=== PATIENT | male | born 1940 | race Caucasian/White ===

== ENCOUNTER 2021-11-17 00:27 | Inpatient (IN) | payer MEDICARE, OTHER ==
[~2021-11-17] VITALS: Ht 167.6 cm; Wt 63.1 kg
[2021-11-17] VITALS (39 sets, daily range): BP systolic 60–166; BP diastolic 37–96
[~2021-11-17 00:27] MED LIST: METF-414 PO; VALS40TA4 PO
[2021-11-17] MEDS ORDERED: ASPIRIN 81MG TABLET PO ONE (01:15)
[2021-11-17 01:27] LABS: CHLORIDE 104 mEq/L (98-107)
[2021-11-17 01:28] LABS: BASOPHILS % 0.2 % (0.0-2.0); EOSINOPHILS % 0.1 % (0.0-5.0); HEMATOCRIT. 26.8 % (42.0-52.0); HEMOGLOBIN. 8.6 g/dL (14.0-18.0); LYMPHOCYTES % 10.4 % (20.0-50.0); MEAN CORPUSCULAR HEMOGLOBIN 31.5 pg (28.0-32.0); MEAN CORPUSCULAR VOLUME 98.1 fL (80.0-94.0); MONOCYTES % 4.5 % (2.0-8.0); NEUTROPHILS % 84.8 % (40.0-76.0); PLATELET 210 x1000/uL (130-400); RED BLOOD CELL COUNT 2.73 mill/uL (4.7-6.1); RED CELL DISTRIBUTION WIDTH 14.8 % (11.6-14.6)
[2021-11-17 01:37] LABS: D-DIMER 1.71 mg/L FEU (<0.50); INR 1.1; PARTIAL THROMBOPLASTIN TIME 30.1 sec (23.4-31.0)
[2021-11-17] MEDS ORDERED: FUROSEMIDE 40MG/4ML VIAL IVP ONE (02:15)
[2021-11-17] MEDS ORDERED: HEPARIN 25,000 UNITS PREMIX 250 ML IV ONE (04:15)
[2021-11-17] MEDS ORDERED: HEPARIN 5000 UNITS/ML VIAL IV ONE (04:15)
[2021-11-17] MEDS ORDERED: HEPARIN BOLUS IV NR (05:10)
[2021-11-17] MEDS: HEPARIN 25,000 UNITS PREMIX 250 ML IV SCH ×2 (05:39→05:59)
[2021-11-17 08:13] LABS: HEPATITIS B SURFACE ANTIGEN NEGATIVE
[2021-11-17] MEDS ORDERED: SODIUM CHLORIDE 0.9% 10ML VIAL ONE (08:28)
[2021-11-17] MEDS ORDERED: ETOMIDATE 2MG/ML 10ML VIAL IV ONE (08:28)
[2021-11-17] MEDS ORDERED: HEPARIN 1000 UNITS/ML 10ML ONE (09:22)
[2021-11-17] MEDS ORDERED: LIDOCAINE HCL/PF 1% 10 MG/ML 5ML VIAL ONE (09:22)
[2021-11-17] MEDS ORDERED: HEPARIN BOLUS PRN aPTT <30 IV (11:00)
[2021-11-17] MEDS ORDERED: HEPARIN BOLUS PRN aPTT 30-44 IV (11:00)
[2021-11-17] MEDS ORDERED: DEXTROSE 50% WATER 50ML SYRINGE IV PRN (12:30)
[2021-11-17] MEDS ORDERED: ONDANSETRON HCL 4MG/2ML INJ IV PRN (12:30)
[2021-11-17 13:26] LABS: BG BASE EXCESS -7.3 mmol/L (-2.0-2.0); BG CARBOXYHEMOGLOBIN 0.1 % (0.5-1.5); BG DEOXYHEMOGLOBIN 5.5 % (0.0-5.0); BG FRACTION INSPIRED OXYGEN 100; BG HCO3 ACT 17.6 mmol/L (22.0-26.0); BG METHEMOGLOBIN 0.3 % (0.0-1.5); BG OXYGEN SATURATION 94.5 % (92.0-98.5); BG OXYHEMOGLOBIN 94.1 % (94.0-97.0); BG PCO2 32.8 mmHg (35.0-45.0); BG PH 7.347 (7.350-7.450); BG PO2 83.2 mmHg (75.0-100.0); BG TOTAL HEMOGLOBIN 8.2 g/dL (12.0-18.0); BG VENT MODE MASK - NRB
[2021-11-17] MEDS ORDERED: CALC667T6 MT (14:32)
[2021-11-17] MEDS ORDERED: ISOS60TA76 PO (14:32)
[2021-11-17] MEDS ORDERED: NEPVIT PO (14:57)
[2021-11-17] MEDS ORDERED: CIPR500S3 PO (14:57)
[2021-11-17] MEDS ORDERED: SODI650T MT (14:57)
[2021-11-17] MEDS ORDERED: NIFE-33 PO (14:57)
[2021-11-17] MEDS ORDERED: LATA2.5D14 RIGHTEYE (14:57)
[2021-11-17] MEDS ORDERED: HYDR-4134 PO (14:57)
[2021-11-17] MEDS ORDERED: CARV25TA47 MT (14:57)
[2021-11-17] MEDS ORDERED: GABA-532 PO (14:57)
[2021-11-17] MEDS ORDERED: PRED5DRO22 LEFTEYE (14:57)
[2021-11-17] MEDS ORDERED: CIPR5DRO LEFTEYE (14:57)
[2021-11-17] MEDS ORDERED: DOXY150T5 PO (14:57)
[2021-11-17] MEDS ORDERED: VANCO LEFTEYE (14:57)
[2021-11-17] MEDS ORDERED: DORZ10DR9 RIGHTEYE (14:57)
[2021-11-17] MEDS: IPRATROPIUM/ALBUTEROL 0.5-3(2.5)MG/3ML NEB HHN SCH ×2 (16:10→20:29)
[2021-11-17] MEDS ORDERED: SODIUM BICARBONATE 8.4% 1 MEQ/ML 50ML SYR IV NR (16:30)
[2021-11-17 17:18] LABS: MEAN CORPUSCULAR HEMOGLOBIN 31.8 pg (28.0-32.0); MEAN CORPUSCULAR VOLUME 95.5 fL (80.0-94.0); MEAN PLATELET VOLUME 8.6 fl (7.4-10.4); PLATELET 191 x1000/uL (130-400); RED BLOOD CELL COUNT 2.16 mill/uL (4.7-6.1); RED CELL DISTRIBUTION WIDTH 14.2 % (11.6-14.6)
[2021-11-17 17:22] LABS: HEMATOCRIT. 20.7 % (42.0-52.0); HEMOGLOBIN. 6.9 g/dL (14.0-18.0)
[2021-11-17] MEDS: INSULIN LISPRO 100 UNITS/ML SUBCUT SCH ×2 (17:43→22:11)
[2021-11-17] MEDS: BLOOD SUGAR DIAGNOSTIC STRIP TEST SCH ×2 (17:43→21:00)
[2021-11-17 17:48] LABS: PLATELET ESTIMATE NORMAL
[2021-11-17 18:22] LABS: CREATINE KINASE 1451 IU/L (39-308)
[2021-11-17] MEDS: PROPOFOL 10MG/ML 100ML 100 ML IV PRN (20:45)
[2021-11-17] MEDS: FUROSEMIDE 40MG/4ML VIAL IVP SCH (21:25)
[2021-11-17] MEDS: CARVEDILOL 6.25 MG TABLET PO SCH (21:26)
[2021-11-17 22:33] LABS: BG BASE EXCESS -3.6 mmol/L (-2.0-2.0); BG CARBOXYHEMOGLOBIN 0.3 % (0.5-1.5); BG DEOXYHEMOGLOBIN 8.6 % (0.0-5.0); BG FRACTION INSPIRED OXYGEN 100; BG HCO3 ACT 20.4 mmol/L (22.0-26.0); BG OXYGEN SATURATION 91.4 % (92.0-98.5); BG OXYHEMOGLOBIN 91.1 % (94.0-97.0); BG PCO2 33.4 mmHg (35.0-45.0); BG PH 7.404 (7.350-7.450); BG PO2 63.3 mmHg (75.0-100.0); BG SAMPLE SITE RIGHT BRACHIAL; BG TOTAL HEMOGLOBIN 10.8 g/dL (12.0-18.0); BG TOTAL RESPIRATORY RATE 32 b/min; BG VENT MODE VENT - AC
[2021-11-17 23:18] LABS: HEMATOCRIT. 31.2 % (42.0-52.0); HEMOGLOBIN. 10.1 g/dL (14.0-18.0); MEAN CORPUSCULAR VOLUME 95.5 fL (80.0-94.0); MEAN PLATELET VOLUME 8.4 fl (7.4-10.4); PLATELET 156 x1000/uL (130-400); RED BLOOD CELL COUNT 3.27 mill/uL (4.7-6.1); RED CELL DISTRIBUTION WIDTH 15.1 % (11.6-14.6)
[2021-11-17 23:27] LABS: CHLORIDE 111 mEq/L (98-107)
[2021-11-17] MEDS ORDERED: MIDAZOLAM 100MG/100ML PMX 100 ML IV PRN (23:30)
[2021-11-17] MEDS ORDERED: FENTANYL 2500MCG/250ML PMX 250 ML IV PRN (23:30)
[2021-11-17] MEDS: LINEZOLID 600 MG PREMIX 300 ML IV SCH (23:34)
[2021-11-17] MEDS: PIPERACILLIN/TAZOBACTAM 3.375 G in DEXTROSE 5% WATER 50 ML IV SCH (23:34)
[2021-11-18] VITALS (88 sets, daily range): BP systolic 72–145; BP diastolic 48–75
[2021-11-18] MEDS: PROPOFOL 10MG/ML 100ML 100 ML IV PRN (00:01)
[2021-11-18] MEDS: MIDAZOLAM HCL 100 MG in SODIUM CHLORIDE 0.9% 100 ML IV PRN (00:03)
[2021-11-18 00:28] LABS: PLATELET ESTIMATE NORMAL
[2021-11-18] MEDS: IPRATROPIUM/ALBUTEROL 0.5-3(2.5)MG/3ML NEB HHN SCH ×5 (00:43→20:14)
[2021-11-18] MEDS: BLOOD SUGAR DIAGNOSTIC STRIP TEST SCH ×4 (07:50→21:00)
[2021-11-18] MEDS: INSULIN LISPRO 100 UNITS/ML SUBCUT SCH ×4 (08:20→21:00)
[2021-11-18] MEDS: CARVEDILOL 6.25 MG TABLET PO SCH ×2 (09:00→20:48)
[2021-11-18] MEDS: ACETAMINOPHEN 325MG TABLET PO PRN (09:00)
[2021-11-18] MEDS: PIPERACILLIN/TAZOBACTAM 3.375 G in DEXTROSE 5% WATER 50 ML IV SCH ×2 (09:00→20:48)
[2021-11-18] MEDS: FUROSEMIDE 40MG/4ML VIAL IVP SCH ×2 (09:00→20:48)
[2021-11-18] MEDS: PANTOPRAZOLE SODIUM 40 MG/VIAL IV SCH (09:00)
[2021-11-18] MEDS: LINEZOLID 600 MG PREMIX 300 ML IV SCH ×2 (11:42→22:28)
[2021-11-18 11:51] LABS: HEMATOCRIT. 26.3 % (42.0-52.0); HEMOGLOBIN. 8.8 g/dL (14.0-18.0); MEAN CORPUSCULAR HEMOGLOBIN 31.4 pg (28.0-32.0); MEAN CORPUSCULAR VOLUME 94.2 fL (80.0-94.0); MEAN PLATELET VOLUME 9.2 fl (7.4-10.4); PLATELET 126 x1000/uL (130-400); RED BLOOD CELL COUNT 2.79 mill/uL (4.7-6.1); RED CELL DISTRIBUTION WIDTH 15.1 % (11.6-14.6)
[2021-11-18 11:59] LABS: BG BASE EXCESS -2.7 mmol/L (-2.0-2.0); BG CARBOXYHEMOGLOBIN 0.2 % (0.5-1.5); BG DEOXYHEMOGLOBIN 2.9 % (0.0-5.0); BG FRACTION INSPIRED OXYGEN 100; BG HCO3 ACT 20.9 mmol/L (22.0-26.0); BG METHEMOGLOBIN 0.2 % (0.0-1.5); BG OXYGEN SATURATION 97.1 % (92.0-98.5); BG OXYHEMOGLOBIN 96.7 % (94.0-97.0); BG PCO2 31.6 mmHg (35.0-45.0); BG PH 7.439 (7.350-7.450); BG PO2 113.5 mmHg (75.0-100.0); BG SAMPLE SITE RIGHT BRACHIAL; BG TOTAL HEMOGLOBIN 8.8 g/dL (12.0-18.0); BG VENT MODE VENT - AC
[2021-11-18 15:52] LABS: CREATINE KINASE 1249 IU/L (39-308)
[2021-11-18 15:58] LABS: BG DEOXYHEMOGLOBIN 9.9 % (0.0-5.0); BG HCO3 ACT 24.3 mmol/L (22.0-26.0); BG METHEMOGLOBIN 0.3 % (0.0-1.5); BG OXYGEN SATURATION 90.1 % (92.0-98.5); BG OXYHEMOGLOBIN 89.8 % (94.0-97.0); BG PCO2 34.5 mmHg (35.0-45.0); BG PH 7.466 (7.350-7.450); BG PO2 59.2 mmHg (75.0-100.0); BG SAMPLE SITE RIGHT BRACHIAL; BG TOTAL HEMOGLOBIN 12.2 g/dL (12.0-18.0); BG VENT MODE VENT - AC
[2021-11-18 16:12] LABS: CREATINE KINASE MB FRACTION 63.6 ng/mL (0.5-3.6)
[2021-11-18 17:10] LABS: PLATELET ESTIMATE DECREASED
[2021-11-18] MEDS: METHYLPREDNISOLONE SOD SUCC 40 MG/ML VIAL IV SCH (17:13)
[2021-11-19] VITALS (51 sets, daily range): BP systolic 95–168; BP diastolic 49–89
[2021-11-19] MEDS: IPRATROPIUM/ALBUTEROL 0.5-3(2.5)MG/3ML NEB HHN SCH ×6 (00:08→20:10)
[2021-11-19] MEDS: METHYLPREDNISOLONE SOD SUCC 40 MG/ML VIAL IV SCH ×3 (00:20→18:06)
[2021-11-19] MEDS: MIDAZOLAM HCL 100 MG in SODIUM CHLORIDE 0.9% 100 ML IV PRN (05:39)
[2021-11-19 05:47] LABS: HEMATOCRIT. 25.9 % (42.0-52.0); HEMOGLOBIN. 8.5 g/dL (14.0-18.0); MEAN CORPUSCULAR HEMOGLOBIN 31.5 pg (28.0-32.0); MEAN CORPUSCULAR VOLUME 95.7 fL (80.0-94.0); MEAN PLATELET VOLUME 8.5 fl (7.4-10.4); PLATELET 81 x1000/uL (130-400); RED BLOOD CELL COUNT 2.71 mill/uL (4.7-6.1); RED CELL DISTRIBUTION WIDTH 15.6 % (11.6-14.6)
[2021-11-19] MEDS: BLOOD SUGAR DIAGNOSTIC STRIP TEST SCH ×4 (06:43→21:59)
[2021-11-19] MEDS: INSULIN LISPRO 100 UNITS/ML SUBCUT SCH ×4 (06:49→22:01)
[2021-11-19] MEDS: FUROSEMIDE 40MG/4ML VIAL IVP SCH ×2 (08:29→21:48)
[2021-11-19] MEDS: CARVEDILOL 6.25 MG TABLET PO SCH ×2 (08:29→21:00)
[2021-11-19] MEDS: PANTOPRAZOLE SODIUM 40 MG/VIAL IV SCH (08:29)
[2021-11-19] MEDS: PIPERACILLIN/TAZOBACTAM 3.375 G in DEXTROSE 5% WATER 50 ML IV SCH ×2 (08:29→21:48)
[2021-11-19] MEDS: HYDRALAZINE HCL 25MG TABLET PO SCH ×3 (09:15→21:51)
[2021-11-19] MEDS: LINEZOLID 600 MG PREMIX 300 ML IV SCH (10:51)
[2021-11-19 12:51] LABS: BG BASE EXCESS -3.8 mmol/L (-2.0-2.0); BG CARBOXYHEMOGLOBIN 0.3 % (0.5-1.5); BG DEOXYHEMOGLOBIN 1.3 % (0.0-5.0); BG FRACTION INSPIRED OXYGEN 70; BG HCO3 ACT 20.8 mmol/L (22.0-26.0); BG METHEMOGLOBIN 0.3 % (0.0-1.5); BG OXYGEN SATURATION 98.7 % (92.0-98.5); BG OXYHEMOGLOBIN 98.1 % (94.0-97.0); BG PCO2 35.5 mmHg (35.0-45.0); BG PH 7.385 (7.350-7.450); BG SAMPLE SITE LEFT BRACHIAL; BG TOTAL HEMOGLOBIN 7.7 g/dL (12.0-18.0); BG VENT MODE VENT - AC
[2021-11-19] MEDS ORDERED: INSULIN GLARGINE 100 UNITS/ML SUBCUT NR (17:00)
[2021-11-20] VITALS (48 sets, daily range): BP systolic 110–175; BP diastolic 44–110
[2021-11-20] MEDS: METHYLPREDNISOLONE SOD SUCC 40 MG/ML VIAL IV SCH ×2 (00:03→08:56)
[2021-11-20] MEDS: IPRATROPIUM/ALBUTEROL 0.5-3(2.5)MG/3ML NEB HHN SCH ×5 (00:32→19:58)
[2021-11-20] MEDS: HYDRALAZINE HCL 25MG TABLET PO SCH ×3 (05:51→22:44)
[2021-11-20] MEDS ORDERED: INSULIN REGULAR (HUMULIN R) 300UNITS/3ML VIAL SUBCUT NR (06:15)
[2021-11-20 06:21] LABS: HEMATOCRIT. 22.4 % (42.0-52.0); HEMOGLOBIN. 7.6 g/dL (14.0-18.0); MEAN CORPUSCULAR HEMOGLOBIN 31.7 pg (28.0-32.0); MEAN CORPUSCULAR VOLUME 93.3 fL (80.0-94.0); MEAN PLATELET VOLUME 10.1 fl (7.4-10.4); PLATELET 93 x1000/uL (130-400); RED CELL DISTRIBUTION WIDTH 14.9 % (11.6-14.6)
[2021-11-20] MEDS: INSULIN LISPRO 100 UNITS/ML SUBCUT SCH ×6 (06:32→21:10)
[2021-11-20 06:38] LABS: PLATELET ESTIMATE DECREASED
[2021-11-20 06:58] LABS: PHOSPHORUS 8.1 mg/dL (2.5-4.9)
[2021-11-20] MEDS ORDERED: INSULIN LISPRO 100 UNITS/ML SUBCUT SCH (07:30)
[2021-11-20] MEDS ORDERED: BLOOD SUGAR DIAGNOSTIC STRIP TEST SCH (07:50)
[2021-11-20] MEDS: BLOOD SUGAR DIAGNOSTIC STRIP TEST SCH ×4 (08:45→20:48)
[2021-11-20] MEDS: FUROSEMIDE 40MG/4ML VIAL IVP SCH (08:56)
[2021-11-20] MEDS: PANTOPRAZOLE SODIUM 40 MG/VIAL IV SCH (08:56)
[2021-11-20] MEDS: PIPERACILLIN/TAZOBACTAM 3.375 G in DEXTROSE 5% WATER 50 ML IV SCH ×2 (08:57→20:47)
[2021-11-20] MEDS: CARVEDILOL 6.25 MG TABLET PO SCH ×2 (08:57→20:48)
[2021-11-20 10:19] LABS: PLATELET ESTIMATE DECREASED
[2021-11-20] MEDS: INSULIN GLARGINE 100 UNITS/ML SUBCUT SCH ×2 (10:48→21:11)
[2021-11-20 11:00] LABS: BG BASE EXCESS -1.1 mmol/L (-2.0-2.0); BG CARBOXYHEMOGLOBIN 0.3 % (0.5-1.5); BG HCO3 ACT 23.2 mmol/L (22.0-26.0); BG METHEMOGLOBIN 0.3 % (0.0-1.5); BG OXYHEMOGLOBIN 96.4 % (94.0-97.0); BG PCO2 37.1 mmHg (35.0-45.0); BG PH 7.414 (7.350-7.450); BG PO2 102.9 mmHg (75.0-100.0); BG SAMPLE SITE RIGHT BRACHIAL; BG TOTAL HEMOGLOBIN 10.7 g/dL (12.0-18.0); BG VENT MODE VENT - AC
[2021-11-20 13:06] LABS: HEMATOCRIT 29.2 % (42.0-52.0); HEMOGLOBIN 9.7 g/dL (14.0-18.0)
[2021-11-20] MEDS: CALCIUM ACETATE 667MG CAPSULE PO SCH ×2 (13:22→17:35)
[2021-11-20] MEDS ORDERED: NON FORMULARY PATIENT HOME MED XX SCH ×2 (14:00)
[2021-11-20] MEDS: PREDNISOLONE ACETATE 1% OPHTH DROPS 5ML RIGHTEYE SCH ×3 (15:29→20:50)
[2021-11-20 15:53] LABS: BG BASE EXCESS -1.6 mmol/L (-2.0-2.0); BG CARBOXYHEMOGLOBIN 0.3 % (0.5-1.5); BG DEOXYHEMOGLOBIN 2.9 % (0.0-5.0); BG HCO3 ACT 23.2 mmol/L (22.0-26.0); BG METHEMOGLOBIN 0.4 % (0.0-1.5); BG OXYGEN SATURATION 97.1 % (92.0-98.5); BG OXYHEMOGLOBIN 96.4 % (94.0-97.0); BG PCO2 39.2 mmHg (35.0-45.0); BG PO2 109.8 mmHg (75.0-100.0); BG SAMPLE SITE RIGHT BRACHIAL; BG TOTAL HEMOGLOBIN 9.3 g/dL (12.0-18.0); BG VENT MODE VENT - CPAP
[2021-11-20] MEDS ORDERED: NON FORMULARY PATIENT HOME MED OP SCH ×2 (16:00→17:00)
[2021-11-20] MEDS: EPOETIN ALFA-EPBX 4,000 UNIT/ML VIAL SUBCUT SCH (20:48)
[2021-11-21] VITALS (40 sets, daily range): BP systolic 124–180; BP diastolic 61–109
[2021-11-21] MEDS ORDERED: FENTANYL CITRATE/PF 2,500 MCG in SODIUM CHLORIDE 0.9% 200 ML IV PRN (00:01)
[2021-11-21] MEDS: IPRATROPIUM/ALBUTEROL 0.5-3(2.5)MG/3ML NEB HHN SCH ×6 (00:33→19:39)
[2021-11-21 05:33] LABS: HEMATOCRIT. 28.9 % (42.0-52.0); HEMOGLOBIN. 9.4 g/dL (14.0-18.0); MEAN CORPUSCULAR HEMOGLOBIN 30.5 pg (28.0-32.0); MEAN CORPUSCULAR VOLUME 93.2 fL (80.0-94.0); MEAN PLATELET VOLUME 10.1 fl (7.4-10.4); PLATELET 84 x1000/uL (130-400)
[2021-11-21] MEDS: HYDRALAZINE HCL 25MG TABLET PO SCH ×3 (05:48→21:53)
[2021-11-21] MEDS: HYDRALAZINE 20MG/ML VIAL IV PRN ×3 (06:41→21:53)
[2021-11-21] MEDS: BLOOD SUGAR DIAGNOSTIC STRIP TEST SCH ×4 (07:35→21:53)
[2021-11-21] MEDS: PANTOPRAZOLE SODIUM 40 MG/VIAL IV SCH (08:50)
[2021-11-21] MEDS: CALCIUM ACETATE 667MG CAPSULE PO SCH ×3 (08:50→17:29)
[2021-11-21] MEDS: CARVEDILOL 6.25 MG TABLET PO SCH ×2 (08:51→21:00)
[2021-11-21] MEDS: PIPERACILLIN/TAZOBACTAM 3.375 G in DEXTROSE 5% WATER 50 ML IV SCH ×2 (08:52→21:52)
[2021-11-21] MEDS: METHYLPREDNISOLONE SOD SUCC 40 MG/ML VIAL IV SCH (08:52)
[2021-11-21] MEDS: INSULIN LISPRO 100 UNITS/ML SUBCUT SCH ×4 (08:53→21:00)
[2021-11-21] MEDS: INSULIN GLARGINE 100 UNITS/ML SUBCUT SCH ×2 (08:53→22:00)
[2021-11-21] MEDS: PREDNISOLONE ACETATE 1% OPHTH DROPS 5ML RIGHTEYE SCH ×4 (08:59→21:54)
[2021-11-21 13:19] LABS: NUCLEATED RED BLOOD CELLS 1 /100 WBC
[2021-11-21 13:20] LABS: PLATELET ESTIMATE DECREASED
[2021-11-21 16:05] LABS: BG BASE EXCESS -2.4 mmol/L (-2.0-2.0); BG CARBOXYHEMOGLOBIN 0.3 % (0.5-1.5); BG DEOXYHEMOGLOBIN 2.5 % (0.0-5.0); BG FRACTION INSPIRED OXYGEN 40; BG HCO3 ACT 22.4 mmol/L (22.0-26.0); BG METHEMOGLOBIN 0.7 % (0.0-1.5); BG OXYGEN SATURATION 97.5 % (92.0-98.5); BG OXYHEMOGLOBIN 96.5 % (94.0-97.0); BG PCO2 38.6 mmHg (35.0-45.0); BG PH 7.382 (7.350-7.450); BG PO2 124.8 mmHg (75.0-100.0); BG SAMPLE SITE RIGHT RADIAL; BG TOTAL HEMOGLOBIN 9.3 g/dL (12.0-18.0); BG TOTAL RESPIRATORY RATE 11 b/min; BG VENT MODE VENT - CPAP
[2021-11-21 22:34] LABS: BG BASE EXCESS -1.4 mmol/L (-2.0-2.0); BG CARBOXYHEMOGLOBIN 0.1 % (0.5-1.5); BG DEOXYHEMOGLOBIN 9.1 % (0.0-5.0); BG FRACTION INSPIRED OXYGEN 35; BG HCO3 ACT 22.6 mmol/L (22.0-26.0); BG METHEMOGLOBIN 0.3 % (0.0-1.5); BG OXYGEN SATURATION 90.9 % (92.0-98.5); BG OXYHEMOGLOBIN 90.5 % (94.0-97.0); BG PCO2 35.2 mmHg (35.0-45.0); BG PH 7.425 (7.350-7.450); BG SAMPLE SITE RIGHT BRACHIAL; BG TOTAL HEMOGLOBIN 9.8 g/dL (12.0-18.0); BG VENT MODE COOL AEROSOL
[2021-11-22] VITALS (46 sets, daily range): BP systolic 103–157; BP diastolic 60–82
[2021-11-22] MEDS: IPRATROPIUM/ALBUTEROL 0.5-3(2.5)MG/3ML NEB HHN SCH ×5 (00:11→20:07)
[2021-11-22 05:32] LABS: HEMATOCRIT. 30.8 % (42.0-52.0); HEMOGLOBIN. 10.1 g/dL (14.0-18.0); MEAN CORPUSCULAR HEMOGLOBIN 30.7 pg (28.0-32.0); MEAN CORPUSCULAR VOLUME 93.5 fL (80.0-94.0); MEAN PLATELET VOLUME 10.1 fl (7.4-10.4); PLATELET 95 x1000/uL (130-400); RED CELL DISTRIBUTION WIDTH 15.9 % (11.6-14.6)
[2021-11-22] MEDS: HYDRALAZINE HCL 25MG TABLET PO SCH ×3 (06:00→22:00)
[2021-11-22] MEDS: BLOOD SUGAR DIAGNOSTIC STRIP TEST SCH ×4 (08:01→20:43)
[2021-11-22] MEDS: INSULIN LISPRO 100 UNITS/ML SUBCUT SCH ×4 (08:01→20:51)
[2021-11-22] MEDS: CARVEDILOL 6.25 MG TABLET PO SCH ×2 (08:04→20:50)
[2021-11-22] MEDS: PANTOPRAZOLE SODIUM 40 MG/VIAL IV SCH (08:04)
[2021-11-22] MEDS: PIPERACILLIN/TAZOBACTAM 3.375 G in DEXTROSE 5% WATER 50 ML IV SCH ×2 (08:04→23:55)
[2021-11-22] MEDS: METHYLPREDNISOLONE SOD SUCC 40 MG/ML VIAL IV SCH (08:04)
[2021-11-22] MEDS: CALCIUM ACETATE 667MG CAPSULE PO SCH ×3 (08:04→17:09)
[2021-11-22] MEDS: DEXTROSE 50% WATER 50ML SYRINGE IV PRN (08:05)
[2021-11-22] MEDS: PREDNISOLONE ACETATE 1% OPHTH DROPS 5ML RIGHTEYE SCH ×4 (08:19→20:50)
[2021-11-22] MEDS: INSULIN GLARGINE 100 UNITS/ML SUBCUT SCH ×2 (10:00→22:00)
[2021-11-22 14:16] LABS: PLATELET ESTIMATE DECREASED
[2021-11-22] MEDS: TOBRAMYCIN LEFTEYE SCH ×3 (15:47→20:27)
[2021-11-22] MEDS: VANCOMYCIN 25 MG/ML LEFTEYE SCH ×2 (17:10→20:27)
[2021-11-22 17:35] LABS: BG CARBOXYHEMOGLOBIN 0.3 % (0.5-1.5); BG DEOXYHEMOGLOBIN 11.4 % (0.0-5.0); BG FRACTION INSPIRED OXYGEN 40; BG HCO3 ACT 26.2 mmol/L (22.0-26.0); BG METHEMOGLOBIN 0.3 % (0.0-1.5); BG OXYGEN SATURATION 88.5 % (92.0-98.5); BG PCO2 34.8 mmHg (35.0-45.0); BG PH 7.495 (7.350-7.450); BG PO2 53.3 mmHg (75.0-100.0); BG SAMPLE SITE RIGHT BRACHIAL; BG VENT MODE COOL AEROSOL
[2021-11-23] VITALS (51 sets, daily range): BP systolic 114–159; BP diastolic 54–95
[2021-11-23] MEDS: IPRATROPIUM/ALBUTEROL 0.5-3(2.5)MG/3ML NEB HHN SCH ×6 (00:14→19:50)
[2021-11-23] MEDS: HYDRALAZINE HCL 25MG TABLET PO SCH ×3 (05:17→21:57)
[2021-11-23] MEDS: DEXTROSE 50% WATER 50ML SYRINGE IV PRN (07:37)
[2021-11-23] MEDS: BLOOD SUGAR DIAGNOSTIC STRIP TEST SCH ×4 (07:49→20:36)
[2021-11-23] MEDS: INSULIN LISPRO 100 UNITS/ML SUBCUT SCH ×4 (07:49→20:45)
[2021-11-23] MEDS ORDERED: POTASSIUM CHLORIDE 20MEQ TABLET SR PO NR (08:15)
[2021-11-23] MEDS: TOBRAMYCIN LEFTEYE SCH ×7 (08:46→20:27)
[2021-11-23] MEDS: PIPERACILLIN/TAZOBACTAM 3.375 G in DEXTROSE 5% WATER 50 ML IV SCH ×2 (08:46→20:27)
[2021-11-23] MEDS: VANCOMYCIN 25 MG/ML LEFTEYE SCH ×4 (08:46→20:30)
[2021-11-23] MEDS: PREDNISOLONE ACETATE 1% OPHTH DROPS 5ML RIGHTEYE SCH ×4 (08:46→20:36)
[2021-11-23] MEDS: PANTOPRAZOLE SODIUM 40 MG/VIAL IV SCH (08:47)
[2021-11-23] MEDS: METHYLPREDNISOLONE SOD SUCC 40 MG/ML VIAL IV SCH (08:47)
[2021-11-23] MEDS: CALCIUM ACETATE 667MG CAPSULE PO SCH ×3 (08:47→17:30)
[2021-11-23] MEDS: CARVEDILOL 6.25 MG TABLET PO SCH ×2 (08:47→20:28)
[2021-11-23] MEDS: INSULIN GLARGINE 100 UNITS/ML SUBCUT SCH ×2 (10:00→21:52)
[2021-11-23 16:57] LABS: BG BASE EXCESS 1.4 mmol/L (-2.0-2.0); BG CARBOXYHEMOGLOBIN 0.3 % (0.5-1.5); BG DEOXYHEMOGLOBIN 8.1 % (0.0-5.0); BG HCO3 ACT 24.8 mmol/L (22.0-26.0); BG METHEMOGLOBIN 0.1 % (0.0-1.5); BG OXYGEN SATURATION 91.9 % (92.0-98.5); BG OXYHEMOGLOBIN 91.5 % (94.0-97.0); BG PCO2 34.6 mmHg (35.0-45.0); BG PH 7.473 (7.350-7.450); BG PO2 64.5 mmHg (75.0-100.0); BG SAMPLE SITE RIGHT RADIAL; BG VENT MODE COOL AEROSOL
[2021-11-23] MEDS: EPOETIN ALFA-EPBX 4,000 UNIT/ML VIAL SUBCUT SCH (20:32)
[2021-11-23] MEDS: HYDRALAZINE 20MG/ML VIAL IV PRN (21:47)
[2021-11-24] VITALS (32 sets, daily range): BP systolic 87–156; BP diastolic 56–90
[2021-11-24] MEDS: IPRATROPIUM/ALBUTEROL 0.5-3(2.5)MG/3ML NEB HHN SCH ×6 (00:07→20:16)
[2021-11-24] MEDS: HYDRALAZINE HCL 25MG TABLET PO SCH ×3 (05:04→21:02)
[2021-11-24 05:33] LABS: HEMATOCRIT. 27.1 % (42.0-52.0); HEMOGLOBIN. 9.1 g/dL (14.0-18.0); MEAN CORPUSCULAR HEMOGLOBIN 31.2 pg (28.0-32.0); MEAN CORPUSCULAR VOLUME 92.4 fL (80.0-94.0); MEAN PLATELET VOLUME 10.5 fl (7.4-10.4); PLATELET 68 x1000/uL (130-400); RED BLOOD CELL COUNT 2.93 mill/uL (4.7-6.1); RED CELL DISTRIBUTION WIDTH 15.3 % (11.6-14.6)
[2021-11-24 05:50] LABS: PHOSPHORUS 5.4 mg/dL (2.5-4.9)
[2021-11-24 06:26] LABS: PLATELET ESTIMATE DECREASED
[2021-11-24] MEDS: INSULIN LISPRO 100 UNITS/ML SUBCUT SCH ×4 (08:20→20:38)
[2021-11-24] MEDS: BLOOD SUGAR DIAGNOSTIC STRIP TEST SCH ×4 (08:22→20:25)
[2021-11-24] MEDS: PANTOPRAZOLE SODIUM 40 MG/VIAL IV SCH (08:36)
[2021-11-24] MEDS: METHYLPREDNISOLONE SOD SUCC 40 MG/ML VIAL IV SCH (08:36)
[2021-11-24] MEDS: CALCIUM ACETATE 667MG CAPSULE PO SCH ×3 (08:36→17:49)
[2021-11-24] MEDS: PREDNISOLONE ACETATE 1% OPHTH DROPS 5ML RIGHTEYE SCH ×4 (08:37→20:23)
[2021-11-24] MEDS: TOBRAMYCIN LEFTEYE SCH ×7 (08:37→19:33)
[2021-11-24] MEDS: VANCOMYCIN 25 MG/ML LEFTEYE SCH ×4 (08:37→20:14)
[2021-11-24] MEDS: CARVEDILOL 6.25 MG TABLET PO SCH ×2 (08:38→20:15)
[2021-11-24] MEDS: PIPERACILLIN/TAZOBACTAM 3.375 G in DEXTROSE 5% WATER 50 ML IV SCH ×2 (08:38→20:14)
[2021-11-24] MEDS: INSULIN GLARGINE 100 UNITS/ML SUBCUT SCH ×2 (10:00→21:04)
[2021-11-25] VITALS (18 sets, daily range): BP systolic 124–162; BP diastolic 64–85
[2021-11-25] MEDS: IPRATROPIUM/ALBUTEROL 0.5-3(2.5)MG/3ML NEB HHN SCH ×6 (01:06→20:46)
[2021-11-25] MEDS: HYDRALAZINE HCL 25MG TABLET PO SCH ×3 (05:03→22:29)
[2021-11-25 05:54] LABS: HEMATOCRIT. 28.7 % (42.0-52.0); HEMOGLOBIN. 9.5 g/dL (14.0-18.0); MEAN CORPUSCULAR HEMOGLOBIN 30.7 pg (28.0-32.0); MEAN PLATELET VOLUME 10.9 fl (7.4-10.4); PLATELET 80 x1000/uL (130-400); RED BLOOD CELL COUNT 3.08 mill/uL (4.7-6.1); RED CELL DISTRIBUTION WIDTH 15.3 % (11.6-14.6)
[2021-11-25 07:42] LABS: PLATELET ESTIMATE DECREASED
[2021-11-25] MEDS: INSULIN LISPRO 100 UNITS/ML SUBCUT SCH ×4 (08:20→21:00)
[2021-11-25] MEDS: BLOOD SUGAR DIAGNOSTIC STRIP TEST SCH ×4 (08:41→21:00)
[2021-11-25] MEDS: TOBRAMYCIN LEFTEYE SCH ×7 (08:42→20:42)
[2021-11-25] MEDS: VANCOMYCIN 25 MG/ML LEFTEYE SCH ×4 (08:42→20:42)
[2021-11-25] MEDS: CALCIUM ACETATE 667MG CAPSULE PO SCH ×3 (08:44→17:15)
[2021-11-25] MEDS: PIPERACILLIN/TAZOBACTAM 3.375 G in DEXTROSE 5% WATER 50 ML IV SCH ×2 (08:44→22:39)
[2021-11-25] MEDS: PANTOPRAZOLE SODIUM 40 MG/VIAL IV SCH (08:45)
[2021-11-25] MEDS: METHYLPREDNISOLONE SOD SUCC 40 MG/ML VIAL IV SCH (08:45)
[2021-11-25] MEDS: CARVEDILOL 6.25 MG TABLET PO SCH (08:45)
[2021-11-25] MEDS: PREDNISOLONE ACETATE 1% OPHTH DROPS 5ML RIGHTEYE SCH ×4 (08:46→20:38)
[2021-11-25] MEDS: INSULIN GLARGINE 100 UNITS/ML SUBCUT SCH ×2 (10:35→22:00)
[2021-11-25] MEDS ORDERED: *PATIENT'S OWN MEDICATION STORAGE XX SCH (12:45)
[2021-11-25] MEDS: CARVEDILOL 12.5MG TABLET PO SCH (20:37)
[2021-11-25] MEDS: EPOETIN ALFA-EPBX 4,000 UNIT/ML VIAL SUBCUT SCH (20:43)
[2021-11-26] VITALS (13 sets, daily range): BP systolic 101–162; BP diastolic 48–86
[2021-11-26] MEDS: IPRATROPIUM/ALBUTEROL 0.5-3(2.5)MG/3ML NEB HHN SCH ×6 (00:11→20:00)
[2021-11-26] MEDS: ACETAMINOPHEN 325MG TABLET PO PRN ×2 (04:41→14:13)
[2021-11-26] MEDS: HYDRALAZINE HCL 25MG TABLET PO SCH ×3 (07:21→22:00)
[2021-11-26 07:42] LABS: HEMATOCRIT. 28.6 % (42.0-52.0); HEMOGLOBIN. 9.5 g/dL (14.0-18.0); MEAN CORPUSCULAR HEMOGLOBIN 31.5 pg (28.0-32.0); MEAN CORPUSCULAR VOLUME 94.4 fL (80.0-94.0); MEAN PLATELET VOLUME 10.8 fl (7.4-10.4); PLATELET 104 x1000/uL (130-400); RED BLOOD CELL COUNT 3.03 mill/uL (4.7-6.1); RED CELL DISTRIBUTION WIDTH 15.2 % (11.6-14.6)
[2021-11-26] MEDS: TOBRAMYCIN LEFTEYE SCH ×7 (07:54→20:25)
[2021-11-26] MEDS: BLOOD SUGAR DIAGNOSTIC STRIP TEST SCH ×4 (07:57→21:00)
[2021-11-26] MEDS: INSULIN LISPRO 100 UNITS/ML SUBCUT SCH ×4 (07:58→21:00)
[2021-11-26] MEDS: METHYLPREDNISOLONE SOD SUCC 40 MG/ML VIAL IV SCH (08:49)
[2021-11-26] MEDS: PANTOPRAZOLE SODIUM 40 MG/VIAL IV SCH (08:49)
[2021-11-26] MEDS: PIPERACILLIN/TAZOBACTAM 3.375 G in DEXTROSE 5% WATER 50 ML IV SCH ×2 (08:49→22:33)
[2021-11-26] MEDS: CARVEDILOL 12.5MG TABLET PO SCH ×2 (08:49→21:00)
[2021-11-26] MEDS: CALCIUM ACETATE 667MG CAPSULE PO SCH ×3 (08:49→16:30)
[2021-11-26] MEDS: PREDNISOLONE ACETATE 1% OPHTH DROPS 5ML RIGHTEYE SCH ×4 (08:50→22:26)
[2021-11-26] MEDS: VANCOMYCIN 25 MG/ML LEFTEYE SCH ×4 (08:50→20:26)
[2021-11-26] MEDS: INSULIN GLARGINE 100 UNITS/ML SUBCUT SCH ×2 (09:02→22:33)
[2021-11-26 09:04] LABS: PLATELET ESTIMATE SLIGHTLY DECREASED
[2021-11-26] MEDS ORDERED: ALTEPLASE 2MG/VIAL ITC NR (10:00)
[2021-11-27] VITALS (12 sets, daily range): BP systolic 104–140; BP diastolic 53–81
[2021-11-27] MEDS: IPRATROPIUM/ALBUTEROL 0.5-3(2.5)MG/3ML NEB HHN SCH ×6 (00:22→20:52)
[2021-11-27] MEDS: HYDRALAZINE HCL 25MG TABLET PO SCH ×3 (06:49→21:23)
[2021-11-27] MEDS: TOBRAMYCIN LEFTEYE SCH ×7 (07:41→21:22)
[2021-11-27] MEDS: BLOOD SUGAR DIAGNOSTIC STRIP TEST SCH ×4 (07:49→21:24)
[2021-11-27] MEDS: INSULIN LISPRO 100 UNITS/ML SUBCUT SCH ×4 (07:49→21:00)
[2021-11-27] MEDS: VANCOMYCIN 25 MG/ML LEFTEYE SCH ×4 (08:00→21:22)
[2021-11-27] MEDS: PREDNISOLONE ACETATE 1% OPHTH DROPS 5ML RIGHTEYE SCH ×4 (08:00→21:23)
[2021-11-27] MEDS: CARVEDILOL 12.5MG TABLET PO SCH ×2 (08:01→21:23)
[2021-11-27] MEDS: CALCIUM ACETATE 667MG CAPSULE PO SCH ×3 (08:01→16:26)
[2021-11-27] MEDS: PIPERACILLIN/TAZOBACTAM 3.375 G in DEXTROSE 5% WATER 50 ML IV SCH (08:01)
[2021-11-27] MEDS: PANTOPRAZOLE SODIUM 40 MG/VIAL IV SCH (08:01)
[2021-11-27] MEDS: METHYLPREDNISOLONE SOD SUCC 40 MG/ML VIAL IV SCH (08:01)
[2021-11-27] MEDS: INSULIN GLARGINE 100 UNITS/ML SUBCUT SCH ×2 (09:10→21:38)
[2021-11-27] MEDS: ACETAMINOPHEN 325MG TABLET PO PRN (21:34)
[2021-11-28] VITALS (15 sets, daily range): BP systolic 114–149; BP diastolic 37–80
[2021-11-28] MEDS: IPRATROPIUM/ALBUTEROL 0.5-3(2.5)MG/3ML NEB HHN SCH ×7 (00:23→23:46)
[2021-11-28] MEDS: HYDRALAZINE HCL 25MG TABLET PO SCH ×3 (05:35→21:34)
[2021-11-28 05:58] LABS: MEAN CORPUSCULAR HEMOGLOBIN 31.3 pg (28.0-32.0); MEAN CORPUSCULAR VOLUME 95.6 fL (80.0-94.0); MEAN PLATELET VOLUME 10.3 fl (7.4-10.4); PLATELET 125 x1000/uL (130-400); RED BLOOD CELL COUNT 2.51 mill/uL (4.7-6.1); RED CELL DISTRIBUTION WIDTH 15.6 % (11.6-14.6)
[2021-11-28 06:19] LABS: PHOSPHORUS 4.9 mg/dL (2.5-4.9)
[2021-11-28 07:05] LABS: HEMOGLOBIN. 7.8 g/dL (14.0-18.0)
[2021-11-28] MEDS: BLOOD SUGAR DIAGNOSTIC STRIP TEST SCH ×4 (07:52→20:16)
[2021-11-28] MEDS: INSULIN LISPRO 100 UNITS/ML SUBCUT SCH ×4 (07:52→21:34)
[2021-11-28] MEDS: PANTOPRAZOLE SODIUM 40 MG/VIAL IV SCH (08:35)
[2021-11-28] MEDS: METHYLPREDNISOLONE SOD SUCC 40 MG/ML VIAL IV SCH (08:35)
[2021-11-28] MEDS: CALCIUM ACETATE 667MG CAPSULE PO SCH ×3 (08:35→16:33)
[2021-11-28] MEDS: CARVEDILOL 12.5MG TABLET PO SCH ×2 (08:36→21:33)
[2021-11-28] MEDS: VANCOMYCIN 25 MG/ML LEFTEYE SCH ×4 (08:36→21:33)
[2021-11-28] MEDS: PREDNISOLONE ACETATE 1% OPHTH DROPS 5ML RIGHTEYE SCH ×4 (08:37→21:32)
[2021-11-28] MEDS: TOBRAMYCIN LEFTEYE SCH ×7 (08:37→21:32)
[2021-11-28] MEDS: INSULIN GLARGINE 100 UNITS/ML SUBCUT SCH ×2 (10:12→21:35)
[2021-11-28 12:49] LABS: PARTIAL THROMBOPLASTIN TIME 23.6 sec (23.4-31.0)
[2021-11-28 17:15] LABS: PLATELET ESTIMATE SLIGHTLY DECREASED
[2021-11-29] VITALS (22 sets, daily range): BP systolic 129–161; BP diastolic 65–92
[2021-11-29] MEDS: IPRATROPIUM/ALBUTEROL 0.5-3(2.5)MG/3ML NEB HHN SCH ×5 (03:55→21:19)
[2021-11-29] MEDS: HYDRALAZINE HCL 25MG TABLET PO SCH ×3 (05:54→22:19)
[2021-11-29 06:22] LABS: HEMATOCRIT. 23.8 % (42.0-52.0); HEMOGLOBIN. 7.9 g/dL (14.0-18.0); MEAN CORPUSCULAR HEMOGLOBIN 31.4 pg (28.0-32.0); MEAN CORPUSCULAR VOLUME 95.2 fL (80.0-94.0); MEAN PLATELET VOLUME 10.2 fl (7.4-10.4); PLATELET 146 x1000/uL (130-400); RED CELL DISTRIBUTION WIDTH 15.7 % (11.6-14.6)
[2021-11-29] MEDS: BLOOD SUGAR DIAGNOSTIC STRIP TEST SCH ×4 (07:30→21:00)
[2021-11-29] MEDS ORDERED: LIDOCAINE HCL 1% 50ML VIAL (10MG/ML) ONE (07:48)
[2021-11-29] MEDS: INSULIN LISPRO 100 UNITS/ML SUBCUT SCH ×4 (08:00→21:00)
[2021-11-29] MEDS ORDERED: CEFAZOLIN 1000MG PREMIX 50 ML IV ONE (08:04)
[2021-11-29] MEDS ORDERED: FENTANYL CITRATE/PF 50MCG/ML 2ML VIAL ONE (08:04)
[2021-11-29] MEDS ORDERED: FENTANYL CITRATE/PF 50MCG/ML 2ML VIAL IV ONE (08:30)
[2021-11-29] MEDS ORDERED: CEFAZOLIN 1000MG PREMIX 50 ML IV NR (08:45)
[2021-11-29] MEDS: CALCIUM ACETATE 667MG CAPSULE PO SCH ×3 (09:34→16:24)
[2021-11-29] MEDS: TOBRAMYCIN LEFTEYE SCH ×7 (09:35→21:15)
[2021-11-29] MEDS: CARVEDILOL 12.5MG TABLET PO SCH ×2 (09:35→21:19)
[2021-11-29] MEDS: PANTOPRAZOLE SODIUM 40 MG/VIAL IV SCH (09:35)
[2021-11-29] MEDS: VANCOMYCIN 25 MG/ML LEFTEYE SCH ×4 (09:35→21:14)
[2021-11-29] MEDS: METHYLPREDNISOLONE SOD SUCC 40 MG/ML VIAL IV SCH (09:35)
[2021-11-29] MEDS: PREDNISOLONE ACETATE 1% OPHTH DROPS 5ML RIGHTEYE SCH ×4 (09:35→21:20)
[2021-11-29] MEDS: INSULIN GLARGINE 100 UNITS/ML SUBCUT SCH ×2 (09:37→22:21)
[2021-11-29 14:12] LABS: PLATELET ESTIMATE NORMAL
[2021-11-30] VITALS (12 sets, daily range): BP systolic 112–157; BP diastolic 49–100
[2021-11-30] MEDS: IPRATROPIUM/ALBUTEROL 0.5-3(2.5)MG/3ML NEB HHN SCH ×8 (00:26→20:49)
[2021-11-30] MEDS: HYDRALAZINE HCL 25MG TABLET PO SCH ×3 (05:44→21:40)
[2021-11-30] MEDS: BLOOD SUGAR DIAGNOSTIC STRIP TEST SCH ×4 (07:30→20:27)
[2021-11-30] MEDS: INSULIN LISPRO 100 UNITS/ML SUBCUT SCH ×4 (08:00→20:42)
[2021-11-30] MEDS: METHYLPREDNISOLONE SOD SUCC 40 MG/ML VIAL IV SCH (09:19)
[2021-11-30] MEDS: PANTOPRAZOLE SODIUM 40 MG/VIAL IV SCH (09:19)
[2021-11-30] MEDS: CARVEDILOL 12.5MG TABLET PO SCH ×2 (09:19→20:15)
[2021-11-30] MEDS: PREDNISOLONE ACETATE 1% OPHTH DROPS 5ML RIGHTEYE SCH ×4 (09:20→20:17)
[2021-11-30] MEDS: CALCIUM ACETATE 667MG CAPSULE PO SCH ×3 (09:20→17:08)
[2021-11-30] MEDS: TOBRAMYCIN LEFTEYE SCH ×7 (09:20→20:16)
[2021-11-30] MEDS: VANCOMYCIN 25 MG/ML LEFTEYE SCH ×4 (09:20→20:15)
[2021-11-30] MEDS: INSULIN GLARGINE 100 UNITS/ML SUBCUT SCH ×2 (09:22→22:43)
[2021-12-01] VITALS (12 sets, daily range): BP systolic 107–148; BP diastolic 57–80
[2021-12-01] MEDS: IPRATROPIUM/ALBUTEROL 0.5-3(2.5)MG/3ML NEB HHN SCH ×6 (00:54→20:31)
[2021-12-01] MEDS: HYDRALAZINE HCL 25MG TABLET PO SCH ×3 (05:53→22:46)
[2021-12-01 06:41] LABS: HEMATOCRIT. 24.5 % (42.0-52.0); MEAN CORPUSCULAR HEMOGLOBIN 31.7 pg (28.0-32.0); MEAN CORPUSCULAR VOLUME 97.6 fL (80.0-94.0); PLATELET 144 x1000/uL (130-400); RED BLOOD CELL COUNT 2.51 mill/uL (4.7-6.1); RED CELL DISTRIBUTION WIDTH 16.8 % (11.6-14.6)
[2021-12-01] MEDS: BLOOD SUGAR DIAGNOSTIC STRIP TEST SCH ×4 (07:30→20:34)
[2021-12-01] MEDS: INSULIN LISPRO 100 UNITS/ML SUBCUT SCH ×4 (07:43→20:34)
[2021-12-01] MEDS: TOBRAMYCIN LEFTEYE SCH ×7 (07:51→20:10)
[2021-12-01] MEDS: PREDNISOLONE ACETATE 1% OPHTH DROPS 5ML RIGHTEYE SCH ×4 (07:52→20:12)
[2021-12-01] MEDS: CARVEDILOL 12.5MG TABLET PO SCH ×2 (08:03→20:26)
[2021-12-01] MEDS: CALCIUM ACETATE 667MG CAPSULE PO SCH ×3 (09:36→17:36)
[2021-12-01] MEDS: METHYLPREDNISOLONE SOD SUCC 40 MG/ML VIAL IV SCH (09:36)
[2021-12-01] MEDS: PANTOPRAZOLE SODIUM 40 MG/VIAL IV SCH (09:36)
[2021-12-01] MEDS: VANCOMYCIN 25 MG/ML LEFTEYE SCH ×4 (09:37→20:11)
[2021-12-01] MEDS: INSULIN GLARGINE 100 UNITS/ML SUBCUT SCH ×2 (09:42→22:46)
[2021-12-01 11:42] LABS: PLATELET ESTIMATE NORMAL
[2021-12-02] VITALS (12 sets, daily range): BP systolic 93–143; BP diastolic 42–73
[2021-12-02] MEDS: IPRATROPIUM/ALBUTEROL 0.5-3(2.5)MG/3ML NEB HHN SCH ×6 (00:56→20:12)
[2021-12-02] MEDS: HYDRALAZINE HCL 25MG TABLET PO SCH ×3 (06:10→23:03)
[2021-12-02] MEDS: BLOOD SUGAR DIAGNOSTIC STRIP TEST SCH ×4 (07:48→21:08)
[2021-12-02] MEDS: INSULIN LISPRO 100 UNITS/ML SUBCUT SCH ×4 (07:48→21:20)
[2021-12-02] MEDS: DEXTROSE 50% WATER 50ML SYRINGE IV PRN (07:49)
[2021-12-02] MEDS: PREDNISOLONE ACETATE 1% OPHTH DROPS 5ML RIGHTEYE SCH ×4 (09:00→20:57)
[2021-12-02] MEDS: CALCIUM ACETATE 667MG CAPSULE PO SCH ×3 (09:56→17:13)
[2021-12-02] MEDS: PANTOPRAZOLE SODIUM 40 MG/VIAL IV SCH (09:56)
[2021-12-02] MEDS: METHYLPREDNISOLONE SOD SUCC 40 MG/ML VIAL IV SCH (09:56)
[2021-12-02] MEDS: CARVEDILOL 12.5MG TABLET PO SCH ×3 (09:57→20:58)
[2021-12-02] MEDS: VANCOMYCIN 25 MG/ML LEFTEYE SCH ×4 (10:04→20:55)
[2021-12-02] MEDS: TOBRAMYCIN LEFTEYE SCH ×6 (10:06→20:55)
[2021-12-02] MEDS: INSULIN GLARGINE 100 UNITS/ML SUBCUT SCH ×2 (10:11→21:21)
[2021-12-03] VITALS (11 sets, daily range): BP systolic 109–131; BP diastolic 43–92
[2021-12-03] MEDS: IPRATROPIUM/ALBUTEROL 0.5-3(2.5)MG/3ML NEB HHN SCH ×6 (00:45→20:34)
[2021-12-03] MEDS: HYDRALAZINE HCL 25MG TABLET PO SCH ×2 (06:16→15:05)
[2021-12-03 07:13] LABS: HEMATOCRIT. 21.3 % (42.0-52.0); HEMOGLOBIN. 7.1 g/dL (14.0-18.0); MEAN CORPUSCULAR HEMOGLOBIN 32.5 pg (28.0-32.0); MEAN CORPUSCULAR VOLUME 98.1 fL (80.0-94.0); MEAN PLATELET VOLUME 9.9 fl (7.4-10.4); PLATELET 109 x1000/uL (130-400); RED BLOOD CELL COUNT 2.17 mill/uL (4.7-6.1); RED CELL DISTRIBUTION WIDTH 17.7 % (11.6-14.6)
[2021-12-03] MEDS: BLOOD SUGAR DIAGNOSTIC STRIP TEST SCH ×4 (07:30→21:13)
[2021-12-03] MEDS: TOBRAMYCIN LEFTEYE SCH ×7 (08:00→20:53)
[2021-12-03] MEDS: INSULIN LISPRO 100 UNITS/ML SUBCUT SCH ×4 (08:00→20:58)
[2021-12-03] MEDS: CARVEDILOL 12.5MG TABLET PO SCH ×2 (09:00→20:55)
[2021-12-03] MEDS: VANCOMYCIN 25 MG/ML LEFTEYE SCH ×4 (09:00→20:54)
[2021-12-03] MEDS: CALCIUM ACETATE 667MG CAPSULE PO SCH ×3 (09:04→17:53)
[2021-12-03] MEDS: PANTOPRAZOLE SODIUM 40 MG/VIAL IV SCH (09:04)
[2021-12-03] MEDS: METHYLPREDNISOLONE SOD SUCC 40 MG/ML VIAL IV SCH (09:04)
[2021-12-03] MEDS: PREDNISOLONE ACETATE 1% OPHTH DROPS 5ML RIGHTEYE SCH ×4 (09:04→20:57)
[2021-12-03] MEDS: INSULIN GLARGINE 100 UNITS/ML SUBCUT SCH (09:53)
[2021-12-03 20:49] LABS: PLATELET ESTIMATE DECREASED
== END 2021-12-03 22:25 | DRG 207 ==
LOC: ER 00:27 → MICUSO 05:25 → CVICU 12:40 → 5EST 11-25 11:15
PROVIDERS: ADMIT Internal Medicine; ATTEND Internal Medicine
PROC: 5A1955Z Respiratory Ventilation, Greater than 96 Consecutive Hours (ICD-10-PCS; principal; 2021-11-17)
PROC: 0BH17EZ Insertion of Endotracheal Airway into Trachea, Via Natural or Artificial Opening (ICD-10-PCS; 2021-11-17)
PROC: 5A09357 Assistance with Respiratory Ventilation, Less than 24 Consecutive Hours, Continuous Positive Airway Pressure (ICD-10-PCS; 2021-11-17)
PROC: 05HM33Z Insertion of Infusion Device into Right Internal Jugular Vein, Percutaneous Approach (ICD-10-PCS; 2021-11-17)
PROC: B543ZZA Ultrasonography of Right Jugular Veins, Guidance (ICD-10-PCS; 2021-11-17)
PROC: 30233N1 Transfusion of Nonautologous Red Blood Cells into Peripheral Vein, Percutaneous Approach (ICD-10-PCS; 2021-11-17)
PROC: 5A1D70Z Performance of Urinary Filtration, Intermittent, Less than 6 Hours Per Day (ICD-10-PCS; 2021-11-17)
PROC: 5A1D70Z Performance of Urinary Filtration, Intermittent, Less than 6 Hours Per Day (ICD-10-PCS; 2021-11-18)
PROC: 5A1D70Z Performance of Urinary Filtration, Intermittent, Less than 6 Hours Per Day (ICD-10-PCS; 2021-11-20)
PROC: 5A1D70Z Performance of Urinary Filtration, Intermittent, Less than 6 Hours Per Day (ICD-10-PCS; 2021-11-22)
PROC: 5A1D70Z Performance of Urinary Filtration, Intermittent, Less than 6 Hours Per Day (ICD-10-PCS; 2021-11-24)
PROC: 5A1D70Z Performance of Urinary Filtration, Intermittent, Less than 6 Hours Per Day (ICD-10-PCS; 2021-11-26)
PROC: 0JH63XZ Insertion of Tunneled Vascular Access Device into Chest Subcutaneous Tissue and Fascia, Percutaneous Approach (ICD-10-PCS; 2021-11-29)
PROC: 02HV33Z Insertion of Infusion Device into Superior Vena Cava, Percutaneous Approach (ICD-10-PCS; 2021-11-29)
PROC: B5181ZA Fluoroscopy of Superior Vena Cava using Low Osmolar Contrast, Guidance (ICD-10-PCS; 2021-11-29)
PROC: 5A1D70Z Performance of Urinary Filtration, Intermittent, Less than 6 Hours Per Day (ICD-10-PCS; 2021-11-29)
PROC: 02PAX3Z Removal of Infusion Device from Heart, External Approach (ICD-10-PCS; 2021-11-29)
PROC: 5A1D70Z Performance of Urinary Filtration, Intermittent, Less than 6 Hours Per Day (ICD-10-PCS; 2021-11-30)
DX: J96.01 Acute respiratory failure with hypoxia (principal); J69.0 Pneumonitis due to inhalation of food and vomit; N18.6 End stage renal disease; I21.3 ST elevation (STEMI) myocardial infarction of unspecified site; N17.9 Acute kidney failure, unspecified; I13.2 Hypertensive heart and chronic kidney disease with heart failure and with stage 5 chronic kidney disease, or end stage renal disease; R04.2 Hemoptysis; E87.2 Acidosis; Z20.822 Contact with and (suspected) exposure to COVID-19; D50.0 Iron deficiency anemia secondary to blood loss (chronic); E87.5 Hyperkalemia; E78.5 Hyperlipidemia, unspecified; I50.9 Heart failure, unspecified; I16.0 Hypertensive urgency; D63.1 Anemia in chronic kidney disease; E11.22 Type 2 diabetes mellitus with diabetic chronic kidney disease; E11.65 Type 2 diabetes mellitus with hyperglycemia; D69.6 Thrombocytopenia, unspecified; Z99.2 Dependence on renal dialysis
CPT/HCPCS: 31500; 36415; 36556; 36558; 36589; 36600; 71045; 76937; 77001; 78580; 80048; 80053; 82375; 82550; 82553; 82805; 82962; 83036; 83605; 83735; 83880; 84100; 84478; 84484; 85014; 85018; 85025; 85379; 86705; 86706; 86709; 86803; 86850; 86900; 86920; 87070; 87340; 87426; 93005; 93306; 93970; 94003; 94640; 97116; 97162; 97530; 99152; 99153; 99291; A6261; C1750; C1752; C1769; C9113; C9803; J0360; J0690; J0885; J1644; J1815; J1940; J2020; J2250; J2405; J2543; J2704; J2920; J2997; J3010; J3490; J7050; J7060; P9016; U0003; U0005; G0500